=== PATIENT | male | born 1960 | race Caucasian/White ===

== ENCOUNTER 2019-02-28 12:25 | Day surgery (SDC) | payer OTHER ==
[2019-01-18 15:32] VITALS: BMI 29.2
[2019-02-28] MEDS ORDERED: ACETAMINOPHEN 1000 MG/100 ML VIAL (NON FORMULARY) IVPB ONE (14:07)
--- NOTE | 2019-02-28 14:08 | HP ---
History & Physical Update - History History: No Change - Physical Physical: No Change - Assessment Assessment: No Change - Plan Plan: No Change
[2019-02-28] MEDS ORDERED: PROPOFOL 20 ML ONE (14:09)
[2019-02-28] MEDS ORDERED: MIDAZOLAM HCL 2 MG/2 ML SINGLE DOSE VIAL ONE (14:09)
[2019-02-28] MEDS ORDERED: SUCCINYLCHOLINE CHLORIDE 200 MG/10 ML SYRINGE ONE (14:13)
[2019-02-28] MEDS ORDERED: DEXTROSE 5%-0.45% SALINE 1,000 ML IV SCH (14:15)
[2019-02-28] MEDS ORDERED: IBUPROFEN 800 MG/8 ML IJ IVPB SCH (14:15)
[2019-02-28] MEDS ORDERED: DESFLURANE GAS 240 ML BOTTLE IH ONE (14:16)
[2019-02-28] MEDS ORDERED: ceFAZolin SODIUM 1 GM VIAL IVPB ONE (14:40)
[2019-02-28] MEDS ORDERED: KETOROLAC TROMETHAMINE 30 MG/1 ML VIAL ONE (14:44)
[2019-02-28] MEDS ORDERED: DEXAMETHASONE SOD PHOSPHATE 4 MG/1 ML VIAL ONE (14:44)
[2019-02-28] MEDS ORDERED: ceFAZolin SODIUM 1 GM VIAL ONE (14:44)
[2019-02-28] MEDS ORDERED: oxyCODONE HCL 5 MG TABLET PO PRN (15:14)
[2019-02-28] MEDS ORDERED: ONDANSETRON 4 MG/2 ML VIAL IVPUSH PRN (15:14)
[2019-02-28] MEDS ORDERED: LACTATED RINGERS SOLUTION 1,000 ML IV SCH (15:15)
[2019-02-28] MEDS ORDERED: ACETAMINOPHEN INJECTION 100 ML IVPB ONE (15:43)
[2019-02-28 16:41] VITALS: TEMP 97.5
[2019-02-28 16:59] VITALS: PULSE 60
[2019-02-28 19:01] VITALS: BP 123/76
--- NOTE | 2019-03-04 17:57 | PATH ---
Surgical Pathology Report Patient Name: ARCELIA TORRES [facility]. Rec. #: [id number] /Age/Gender: 1960 (Age: 58) / M Account: [id number] Location: U SURGICAL Taken: 02/28/2019 Received: 03/01/2019 Reported: 03/04/2019 Physicians: Pedro Grace M.D. Specimen(s) Received BLADDER STONE Clinical History Bladder stone Final Diagnosis BLADDER STONE, LASER LITHOTRIPSY: BLADDER CALCULI. MACROSCOPIC DIAGNOSIS. Electronically Signed Shaye Borja M.D. Gross Description Received fresh labeled "bladder stone" is a 3 x 3 x 0.5 cm aggregate of smith, irregular to fragmented calculi. The specimen is sent for chemical analysis. MLSZ/03/01/2019 sancathy/03/01/2019
[2019-03-08 14:07] LABS: URIC ACID 100 % (.)
--- NOTE | 2019-03-12 14:53 | OP ---
DATE OF OPERATION: DATE OF DICTATION: 03/12/2019 PREOPERATIVE DIAGNOSIS: Bladder stones and benign prostatic hypertrophy. POSTOPERATIVE DIAGNOSIS: Bladder stones and benign prostatic hypertrophy. PROCEDURE: Cystoscopy, laser lithotripsy of bladder stones. SPECIMENS: Portions of bladder stones. ESTIMATED BLOOD LOSS: Minimal. SURGEON: Pedro Grace MD CLAIMS COUNSEL: None. DRAINS: None. PREOPERATIVE INDICATIONS: Patient is a 58-year-old male with history of BPH and has been experiencing some lower urinary tract symptoms. Cystoscopy in the office revealed bladder stones. He comes to the OR today for laser of these bladder stones. DESCRIPTION OF PROCEDURE: The patient was brought to the OR. Placed on the table in supine position. Given general anesthesia and IV antibiotics and placed in the modified lithotomy position. The groin was prepped and draped sterilely. Cystoscopy was performed. The urethra was normal. The prostate was enlarged and obstructed. The bladder itself was examined. There were some mild trabeculations throughout. Both UOs were seen with clear efflux. Multiple medium-sized bladder stones in aggregate over 2 cm, however, were in the bladder. Using a 1000-micron fiber Holmium laser, the stones were broken up into small pieces and irrigated out completely. The stones were then sent to Pathology. At the end of the destruction of the stones, no evidence of bladder injury was seen. Both UOs were also visualized and were working properly. Good hemostasis was observed. The scope was removed. The patient was woken up. PEDRO GRACE M.D. [id number]
== END 2019-02-28 19:00 | disposition home or self-care (01) ==
LOC: JASU-SURG 12:25
PROVIDERS: ATTEND Urology
PROC: 0TCB8ZZ Extirpation of Matter from Bladder, Via Natural or Artificial Opening Endoscopic (ICD-10-PCS; principal; 2019-02-28 14:00)
DX: N21.0 Calculus in bladder (principal); I10 Essential (primary) hypertension; G47.30 Sleep apnea, unspecified; Z86.73 Personal history of transient ischemic attack (TIA), and cerebral infarction without residual deficits
CPT/HCPCS: 36415; 82360; 88305-TC; 94760; J0131